=== PATIENT | male | born 1960 | race American Indian/Alaskan Native ===

== ENCOUNTER 2018-04-29 15:51 | Observation (INO) | payer OTHER ==
[2018-04-29] MEDS ORDERED: Sodium Chloride 0.9% 1,000 ML IV STA ×2 (16:22→18:44)
[2018-04-29 16:25] VITALS: BMI 27.7
--- NOTE | 2018-04-29 17:07 | ED PDOC ---
Arrival/HPI - General Chief Complaint: Weakness/Neurological Deficit Time Seen by Provider: 04/29/18 16:11 Historian: Patient - History of Present Illness Narrative History of Present Illness (Text): 04/29/18 17:04 57yo male with pmhx of hypertension, Diabetes, Colon CA s/p colectomy 2014 who present with complaint of generalized muscle cramping. Notes 3episodes of vomiting this morning after eating out and then the cramping started. also reports multiple episodes of diarrhea. Notes he was able to keep down a meal without vomiting this afternoon, but still having diarrhea. Denies focal chest pain, abdominal pain, fever, chills, hematemesis, hematochezia, melena, sick contact, travel, any other complaint. Past Medical History - Provider Review Nursing Documentation Reviewed: Yes - Tetanus Immunization Tetanus Immunization: Unknown - Cardiac Hx Hypertension: Yes - Endocrine/Metabolic Hx Diabetes Mellitus Type 2: Yes - Hematological/Oncological Hx Cancer: Yes (colon) - Musculoskeletal/Rheumatological Hx Falls: No - Gastrointestinal Other/Comment: S/P Colon resection 04/28/13 for removal of lesion - Psychiatric Hx Depression: No Hx Emotional Abuse: No Hx Physical Abuse: No Hx Substance Use: No - Anesthesia Hx Anesthesia: No Hx Anesthesia Reactions: No Hx Malignant Hyperthermia: No - Suicidal Assessment Feels Threatened In Home Enviroment: No Family/Social History - Physician Review Nursing Documentation Reviewed: Yes Family/Social History: Unknown Family HX Smoking Status: Never Smoked Hx Alcohol Use: No Hx Substance Use: No Allergies/Home Meds Allergies/Adverse Reactions: Allergies No Known Allergies Allergy (Verified 12/01/15 16:43) Home Medications: Home Meds Medication Instructions Recorded Confirmed RX: Magnesium Oxide [Magnesium] 400 mg PO BID 12/01/15 12/01/15 RX: Potassium Chloride [K-Dur 20 20 meq PO BID 12/01/15 12/01/15 mEq ER Tab] RX: amLODIPine [Norvasc] 10 mg PO DAILY 12/01/15 12/01/15 RX: metFORMIN [glucOPHAGE] 500 mg PO BID 12/01/15 12/01/15 Valsartan/Hydrochlorothiazide 1 tab PO DAILY 12/01/15 12/01/15 [Valsartan-Hctz 160-12.5 mg Tab] Review of Systems - Physician Review All systems were reviewed & negative as marked: Yes - Review of Systems Constitutional: Normal Eyes: Normal ENT: Normal Respiratory: Normal Cardiovascular: Normal Gastrointestinal: Normal Genitourinary Male: Normal Musculoskeletal: Other (Muscle cramps) Skin: Normal Neurological: Normal Endocrine: Normal Hemo/Lymphatic: Normal Psychiatric: Normal Physical Exam Vital Signs Reviewed: Yes Vital Signs Temp Pulse Resp BP Pulse Ox 04/29/18 16:59 98.4 F 04/29/18 16:52 98.4 F 101 H 18 106/61 99 Temperature: Afebrile Blood Pressure: Normal Pulse: Tachycardic Respiratory Rate: Normal Appearance: Positive for: Well-Appearing, Non-Toxic, Comfortable Pain Distress: None Mental Status: Positive for: Alert and Oriented X 3 - Systems Exam Head: Present: Atraumatic, Normocephalic Pupils: Present: PERRL Extroacular Muscles: Present: EOMI Conjunctiva: Present: Normal Mouth: Present: Moist Mucous Membranes Neck: Present: Normal Range of Motion Respiratory/Chest: Present: Clear to Auscultation, Good Air Exchange. No: Respiratory Distress, Accessory Muscle Use Cardiovascular: Present: Regular Rate and Rhythm, Normal S1, S2. No: Murmurs Abdomen: No: Tenderness, Distention, Peritoneal Signs Back: Present: Normal Inspection Upper Extremity: Present: Normal Inspection. No: Cyanosis, Edema Lower Extremity: Present: Normal Inspection. No: Edema Neurological: Present: GCS=15, CN II-XII Intact, Speech Normal Skin: Present: Warm, Dry, Normal Color. No: Rashes Psychiatric: Present: Alert, Oriented x 3, Normal Insight, Normal Concentration Medical Decision Making ED Course and Treatment: 04/29/18 19:02 57yo male who present with complaint of generalized body cramps since today. Labs EKG Chest xray UA 1L NS Reassess 04/29/18 21:46 EKG Sinus tachy @ 104. Chest xray : NAD Labs was reviewed and elevated Cr/BN was noted which is higher than his previous values. Pt likely having YANET secondary to dehydration. 2nd liter of NS was ordered and pt was admitted for obs. Case was DW Dr. maier and he accepted pt for admission. - Medication Orders Current Medication Orders: Sodium Chloride (Sodium Chloride 0.9%) 1,000 mls @ 999 mls/hr IV .Q1H1M STA Stop: 04/29/18 17:22 Disposition/Present on Arrival - Present on Arrival Any Indicators Present on Arrival: No History of DVT/PE: No History of Uncontrolled Diabetes: No Urinary Catheter: No History of Decub. Ulcer: No History Surgical Site Infection Following: None - Disposition Have Diagnosis and Disposition been Completed?: Yes Diagnosis: Acute renal injury, Dehydration Disposition: HOSPITALIZED Disposition Time: 19:30 Patient Plan: Admission Patient Problems: Current Active Problems Problem Status Onset Acute renal injury Acute Dehydration Acute Condition: FAIR
[2018-04-29 18:31] LABS: ALB/GLOB RATIO 1.5 (1.1-1.8); ALBUMIN 4.9 g/dL (3.0-4.8); ALT/SGPT 39 U/L (7-56); AST/SGOT 39 U/L (17-59); BLOOD UREA NITROGEN 28 mg/dL (7-21); CALCIUM 10.4 mg/dL (8.4-10.5); GFR NON-AFRICAN AMERICAN 37
[2018-04-29 18:37] LABS: TROPONIN I < 0.01 ng/mL
[2018-04-29 18:42] LABS: EOS % 0.1 % (1.5-5.0); GRAN # 8.22 (1.4-6.5); HEMOGLOBIN 15.3 g/dL (14.0-18.0); LYMPH % 10.1 % (22.0-35.0); MEAN CELL VOLUME 82.4 fl (80.0-105.0); MEAN PLATELET VOLUME 9.8 fl (7.0-11.0); MONO # 0.8 (0.1-0.6); MONO % 7.8 % (1.0-6.0); RBC 5.46 10^6/uL (3.5-6.1); RED CELL DISTRIBUTION WIDTH 14.1 % (11.5-14.5)
[2018-04-29 18:46] LABS: INR 1.16; PARTIAL THROMBOPLASTIN TIME 27.4 Seconds (25.1-36.5); PROTHROMBIN TIME 13.3 SECONDS (9.4-12.5)
[2018-04-29 18:50] LABS: PH,URINE 5.5 (4.7-8.0); URINE APPEARANCE CLEAR (CLEAR); URINE BILIRUBIN SMALL (NEGATIVE); URINE BLOOD NEGATIVE (NEGATIVE); URINE COLOR DARK YELLOW (YELLOW); URINE GLUCOSE (UA) NEGATIVE (NEGATIVE); URINE LEUKOCYTE ESTERASE NEGATIVE Leu/uL (NEGATIVE); URINE PROTEIN TRACE mg/dL (<30 mg/dL); URINE UROBILINOGEN 0.2 E.U./dL (<1 E.U./dL)
[2018-04-29 19:03] LABS: URINE BACTERIA TRACE (NEG); URINE RBC NEGATIVE /hpf (0-2); URINE WBC 0 - 2 /hpf (0-6)
[2018-04-29] MEDS: Sodium Chloride 0.9% 1,000 ML IV SCH (20:45)
[2018-04-29] MEDS: Insulin Reg-LOW-Coverage SC SCH (23:03)
[2018-04-30 02:09] VITALS: RESP 20
--- NOTE | 2018-04-30 05:22 | CP.PCM.HP ---
<Liliana Sanchez - Last Filed: 04/30/18 10:55> History of Present Illness - History of Present Illness History of Present Illness: CC: I was cramping from head to toe HPI: 57 yo male PMHx colon ca s/p 3 colon resections (1994, 2004, 2014), HTN, and DM2 presents for multiple episodes of vomiting, weakness, and muscle aches throughout his body Patient reports 2 days ago he went to [employer] at night and ate fries and a drink and during the night he awoke to cramping abdominal pain and had multiple episodes of nonbloody nonbilious emesis. Patient tried to have some orange juice and tangerine however he felt weak and had to lie down because of the cramping muscle aches throughout his body. At baseline, since his colon resections, patient has had chronic diarrhea [around 4-5 episodes/day]. This has been unchanged. Patient denied any fever, chills, abdominal pain. He did admit to some hot flashes when he first started to have vomiting. Patient denied any sick contacts/recent travel. This AM patient reported his symptoms had remarkably improved and he no longer complained of cramping pains throughout his body. Patient's nausea and vomiting had resolved. He had one loose BM this AM which is at his baseline. ROS on admission: admits- nausea, vomiting, diarrhea [baseline], muscle aches denies- fever, chills, headache, dizziness, chest pain, palpitations, SOB, cough, abd pain, constipation, swelling in legs b/l. PMHx: colon ca s/p 3 colon resections (1994, 2004, 2014), HTN, and DM2 PSurgHx: 3 colon resections (1994, 2004, 2014) at [facility] Meds: pls see chart ALL: NKDA SocHx: denies EtOH, tobacco use, drug use. Lives at home with his . 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 FamHx: mother, maternal grandmother, mother's siblings, and patient's son (at 32yo was dx) all have colon ca. No hx of heart disease or CVA in family. PMD: Dr. Banegas GI: Dr. Santoyo Cardio: Dr. Echavarria Oncology: Dr. Omalley Present on Admission - Present on Admission Any Indicators Present on Admission: No Review of Systems - Review of Systems All systems: reviewed and no additional remarkable complaints except Review of Systems: as per HPI Past Patient History - Tetanus Immunizations Tetanus Immunization: Unknown - Past Social History Smoking Status: Never Smoked - CARDIAC Hx Hypertension: Yes - ENDOCRINE/METABOLIC Hx Diabetes Mellitus Type 2: Yes - HEMATOLOGICAL/ONCOLOGICAL Hx Cancer: Yes (colon) - MUSCULOSKELETAL/RHEUMATOLOGICAL Hx Falls: No - GASTROINTESTINAL Other/Comment: S/P Colon resection 04/28/13 for removal of lesion - PSYCHIATRIC Hx Depression: No Hx Emotional Abuse: No Hx Physical Abuse: No Hx Substance Use: No - ANESTHESIA Hx Anesthesia: No Hx Anesthesia Reactions: No Hx Malignant Hyperthermia: No Meds Allergies/Adverse Reactions: Allergies Allergy/AdvReac Type Severity Reaction Status Date / Time No Known Allergies Allergy Verified 12/01/15 16:43 Physical Exam - Constitutional Appears: Non-toxic, No Acute Distress - Head Exam Head Exam: ATRAUMATIC, NORMAL INSPECTION, NORMOCEPHALIC - Eye Exam Eye Exam: EOMI, Normal appearance, PERRL. absent: Conjunctival injection, Scleral icterus Pupil Exam: NORMAL ACCOMODATION - ENT Exam ENT Exam: Mucous Membranes Moist - Neck Exam Neck exam: Positive for: Full Rom, Normal Inspection. Negative for: Lymphadenopathy - Respiratory Exam Respiratory Exam: Clear to Auscultation Bilateral, NORMAL BREATHING PATTERN. absent: Accessory Muscle Use, Rales, Rhonchi, Wheezes, Respiratory Distress - Cardiovascular Exam Cardiovascular Exam: REGULAR RHYTHM, RRR, +S1, +S2. absent: Systolic Murmur - GI/Abdominal Exam GI & Abdominal Exam: Normal Bowel Sounds, Soft. absent: Distended, Firm, Guarding, Hyperactive Bowel Sounds, Hypoactive Bowel Sounds, Mass, Rebound, Rigid, Tenderness Additional comments: surgical scar noted +BS - Rectal Exam Rectal Exam: Deferred - Extremities Exam Extremities exam: Positive for: normal capillary refill, normal inspection, pedal pulses present. Negative for: pedal edema - Back Exam Back exam: NORMAL INSPECTION. absent: rash noted - Neurological Exam Neurological exam: Alert, CN II-XII Intact, Oriented x3 - Psychiatric Exam Psychiatric exam: Normal Affect, Normal Mood - Skin Skin Exam: Dry, Intact, Normal Color, Warm Results - Vital Signs Recent Vital Signs: Last Vital Signs Temp 98.4 F 04/29/18 16:59 Pulse 88 04/30/18 00:08 Resp 20 04/30/18 00:57 BP 110/76 04/30/18 00:08 Pulse Ox 100 04/30/18 00:08 - Labs Result Diagrams: 04/30/18 07:15 04/30/18 07:15 Labs: Laboratory Results - last 24 hr 04/29/18 04/29/18 04/29/18 18:00 18:00 18:00 WBC 10.0 RBC 5.46 Hgb 15.3 Hct 45.0 MCV 82.4 MCH 28.0 MCHC 34.0 RDW 14.1 Plt Count 181 MPV 9.8 Gran % 82.0 H Lymph % (Auto) 10.1 L [place] % (Auto) 7.8 H Eos % (Auto) 0.1 L Baso % (Auto) 0.0 Gran # 8.22 H Lymph # (Auto) 1.0 L [place] # (Auto) 0.8 H Eos # (Auto) 0.0 Baso # (Auto) 0.00 PT 13.3 H INR 1.16 APTT 27.4 Sodium 136 Potassium 4.3 Chloride 93 L Carbon Dioxide 25 Anion Gap 22 H BUN 28 H Creatinine 1.9 H Est GFR ( Amer) 44 Est GFR (Non-Af Amer) 37 POC Glucose (mg/dL) Random Glucose 185 H Calcium 10.4 Magnesium 1.3 L Total Bilirubin 1.5 H AST 39 ALT 39 Alkaline Phosphatase 45 Lactate Dehydrogenase 568 Total Creatine Kinase 488 H CK-MB (CK-2) 4.0 H CK-MB (CK-2) % Cancelled Troponin I < 0.01 Total Protein 8.2 Albumin 4.9 H Globulin 3.3 Albumin/Globulin Ratio 1.5 Urine Color Urine Appearance Urine pH Ur Specific [place] Urine Protein Urine Glucose (UA) Urine Ketones Urine Blood Urine Nitrate Urine Bilirubin Urine Urobilinogen Ur Leukocyte Esterase Urine RBC Urine WBC Ur Epithelial Cells Urine Bacteria Hyaline Casts 04/29/18 04/29/18 18:44 22:58 WBC RBC Hgb Hct MCV MCH MCHC RDW Plt Count MPV Gran % Lymph % (Auto) [place] % (Auto) Eos % (Auto) Baso % (Auto) Gran # Lymph # (Auto) [place] # (Auto) Eos # (Auto) Baso # (Auto) PT INR APTT Sodium Potassium Chloride Carbon Dioxide Anion Gap BUN Creatinine Est GFR ( Amer) Est GFR (Non-Af Amer) POC Glucose (mg/dL) 155 H Random Glucose Calcium Magnesium Total Bilirubin AST ALT Alkaline Phosphatase Lactate Dehydrogenase Total Creatine Kinase CK-MB (CK-2) CK-MB (CK-2) % Troponin I Total Protein Albumin Globulin Albumin/Globulin Ratio Urine Color Dark yellow Urine Appearance Clear Urine pH 5.5 Ur Specific [place] >= 1.030 Urine Protein Trace H Urine Glucose (UA) Negative Urine Ketones Trace H Urine Blood Negative Urine Nitrate Negative Urine Bilirubin Small H Urine Urobilinogen 0.2 Ur Leukocyte Esterase Negative Urine RBC Negative Urine WBC 0 - 2 Ur Epithelial Cells 3 - 4 Urine Bacteria Trace Hyaline Casts 3-5 Assessment & Plan - Assessment and Plan (Free Text) Assessment: -Gastroenteritis likely viral -Muscle cramps -Elevated CK -Normocytic anemia -Hypomagnesemia -Elevated TBili -DM2 -HTN -Colon ca s/p 3 resections Plan: Patient's symptoms resolved this AM and he tolerated breakfast. He was started on maintenance fluids for elevated CK and is making good urine. Patient's anemia likely dilutional. Muscle cramps likely due to electrolyte abnl; Mg has been repleted. Elevated TBili noted with unremarkable DBili and no abdominal pain; can be monitored as outpatient. Home metformin on hold and patient was placed on accuchecks and RISS low while admitted. Patient can restart metformin upon discharge. Home HTN medications restarted with strict holding parameters; patient has been normotensive since admission. In light of patient's improved clinical picture, will monitor if patient is able to tolerate PO diet for lunch and likely discharge. Patient agreeable to plan. Discussed with Dr. Callum Sanchez Pgy3 <Manish Nolen S - Last Filed: 04/30/18 20:32> Results - Vital Signs Recent Vital Signs: Last Vital Signs Temp 98.5 F 04/30/18 14:00 Pulse 82 04/30/18 14:00 Resp 20 04/30/18 14:00 BP 107/64 04/30/18 14:00 Pulse Ox 94 L 04/30/18 14:00 - Labs Result Diagrams: 04/30/18 07:15 04/30/18 07:15 Labs: Laboratory Results - last 24 hr 04/29/18 04/30/18 04/30/18 22:58 07:13 07:15 WBC 6.9 D RBC 5.01 Hgb 13.8 L Hct 41.4 L MCV 82.6 MCH 27.5 MCHC 33.3 RDW 14.3 Plt Count 171 MPV 9.9 Sodium Potassium Chloride Carbon Dioxide Anion Gap BUN Creatinine Est GFR ( Amer) Est GFR (Non-Af Amer) POC Glucose (mg/dL) 155 H 146 H Random Glucose Calcium Phosphorus Magnesium Total Bilirubin Direct Bilirubin AST ALT Alkaline Phosphatase Total Creatine Kinase CK-MB (CK-2) CK-MB (CK-2) % Total Protein Albumin Globulin Albumin/Globulin Ratio Influenza Typ A,B (EIA) 04/30/18 04/30/18 04/30/18 07:15 10:56 11:31 WBC RBC Hgb Hct MCV MCH MCHC RDW Plt Count MPV Sodium 138 Potassium 3.6 Chloride 99 Carbon Dioxide 29 Anion Gap 14 BUN 29 H Creatinine 1.5 Est GFR ( Amer) 58 Est GFR (Non-Af Amer) 48 POC Glucose (mg/dL) 192 H Random Glucose 155 H Calcium 8.9 Phosphorus 5.1 H Magnesium 1.5 L Total Bilirubin 1.4 H Direct Bilirubin 0.2 AST 41 ALT 37 Alkaline Phosphatase 39 Total Creatine Kinase 986 H CK-MB (CK-2) 3.6 CK-MB (CK-2) % Cancelled Total Protein 7.4 Albumin 4.2 Globulin 3.2 Albumin/Globulin Ratio 1.3 Influenza Typ A,B (EIA) Negative for flu a/b Assessment & Plan - Assessment and Plan (Free Text) Plan: Pt seen and examined. I reviewed the note of the electromedical equipment technician and I agree with the note including the assessment and plan. I reviewed the medications and last labs. Pt with YANET and had diarrhea. Pt was not able to eat and was have cramps prior to coming in to the hospital. He had colectomy and has chronic diarrhea. Mg is low and will be replaced. HTN is controlled and will watch for hypotension. No abd pain. Hold metformin.
[2018-04-30] MEDS: Sodium Chloride 0.9% 1,000 ML IV SCH (06:59)
[2018-04-30] MEDS ORDERED: Sodium Chloride 0.9% 1,000 ML IV SCH (07:30)
[2018-04-30 07:43] LABS: HEMOGLOBIN 13.8 g/dL (14.0-18.0); MEAN CELL VOLUME 82.6 fl (80.0-105.0); MEAN CORPUSCULAR HEMOGLOBIN 27.5 pg (25.0-35.0); MEAN CORPUSCULAR HGB CONC 33.3 g/dl (31.0-37.0); MEAN PLATELET VOLUME 9.9 fl (7.0-11.0); RBC 5.01 10^6/uL (3.5-6.1); RED CELL DISTRIBUTION WIDTH 14.3 % (11.5-14.5); WHITE BLOOD COUNT 6.9 10^3/uL (4.5-11.0)
[2018-04-30 07:49] VITALS: TEMP 98.5
[2018-04-30 07:55] LABS: ALB/GLOB RATIO 1.3 (1.1-1.8); ALBUMIN 4.2 g/dL (3.0-4.8); CALCIUM 8.9 mg/dL (8.4-10.5)
[2018-04-30 08:09] LABS: BILIRUBIN,DIRECT 0.2 mg/dL (0.0-0.4)
[2018-04-30] MEDS ORDERED: Magnesium Sulfate 2 GM in Sodium Chloride 0.9% 100 ML IV ONE (08:11)
[2018-04-30 08:29] LABS: CK-MB 3.6 ng/mL (0.0-3.6)
[2018-04-30] MEDS ORDERED: Magnesium Sulfate 2 gm/50 ml 2 GM/50 ML BAG IV ONE (08:30)
--- NOTE | 2018-04-30 08:50 | RAD ---
Date of service: 04/29/2018 HISTORY: admission COMPARISON: 05/10/2013 FINDINGS: LUNGS: No active pulmonary disease. PLEURA: No significant pleural effusion identified, no pneumothorax apparent. CARDIOVASCULAR: No aortic atherosclerotic calcification present. Normal cardiac size. No pulmonary vascular congestion. OSSEOUS STRUCTURES: No significant abnormalities. VISUALIZED UPPER ABDOMEN: Normal. OTHER FINDINGS: None. IMPRESSION: No active disease.
[2018-04-30] MEDS: Insulin Reg-LOW-Coverage SC SCH ×2 (11:31→11:35)
--- NOTE | 2018-04-30 13:26 | CP.PCM.DIS ---
<Liliana Sanchez - Last Filed: 04/30/18 13:19> Provider - Provider Date of Admission: 04/29/18 19:07 Attending physician: Manish Nolen MD Primary care physician: Pat Banegas MD Time Spent in preparation of Discharge (in minutes): 45 Hospital Course - Lab Results Lab Results: Most Recent Lab Values WBC 6.9 10^3/uL (4.5-11.0) D 04/30/18 07:15 RBC 5.01 10^6/uL (3.5-6.1) 04/30/18 07:15 Hgb 13.8 g/dL (14.0-18.0) L 04/30/18 07:15 Hct 41.4 % (42.0-52.0) L 04/30/18 07:15 MCV 82.6 fl (80.0-105.0) 04/30/18 07:15 MCH 27.5 pg (25.0-35.0) 04/30/18 07:15 MCHC 33.3 g/dl (31.0-37.0) 04/30/18 07:15 RDW 14.3 % (11.5-14.5) 04/30/18 07:15 Plt Count 171 10^3/uL (120.0-450.0) 04/30/18 07:15 MPV 9.9 fl (7.0-11.0) 04/30/18 07:15 Gran % 82.0 % (50.0-68.0) H 04/29/18 18:00 Lymph % (Auto) 10.1 % (22.0-35.0) L 04/29/18 18:00 [place] % (Auto) 7.8 % (1.0-6.0) H 04/29/18 18:00 Eos % (Auto) 0.1 % (1.5-5.0) L 04/29/18 18:00 Baso % (Auto) 0.0 % (0.0-3.0) 04/29/18 18:00 Gran # 8.22 (1.4-6.5) H 04/29/18 18:00 Lymph # (Auto) 1.0 (1.2-3.4) L 04/29/18 18:00 [place] # (Auto) 0.8 (0.1-0.6) H 04/29/18 18:00 Eos # (Auto) 0.0 (0.0-0.7) 04/29/18 18:00 Baso # (Auto) 0.00 K/mm3 (0.0-2.0) 04/29/18 18:00 PT 13.3 SECONDS (9.4-12.5) H 04/29/18 18:00 INR 1.16 04/29/18 18:00 APTT 27.4 Seconds (25.1-36.5) 04/29/18 18:00 Sodium 138 mmol/L (132-148) 04/30/18 07:15 Potassium 3.6 mmol/L (3.6-5.0) 04/30/18 07:15 Chloride 99 mmol/L (98-107) 04/30/18 07:15 Carbon Dioxide 29 mmol/L (21-33) 04/30/18 07:15 Anion Gap 14 (10-20) 04/30/18 07:15 BUN 29 mg/dL (7-21) H 04/30/18 07:15 Creatinine 1.5 mg/dl (0.8-1.5) 04/30/18 07:15 Est GFR ( Amer) 58 04/30/18 07:15 Est GFR (Non-Af Amer) 48 04/30/18 07:15 POC Glucose (mg/dL) 192 mg/dL (65-110) H 04/30/18 10:56 Random Glucose 155 mg/dL (70-110) H 04/30/18 07:15 Calcium 8.9 mg/dL (8.4-10.5) 04/30/18 07:15 Phosphorus 5.1 mg/dL (2.5-4.5) H 04/30/18 07:15 Magnesium 1.5 mg/dL (1.7-2.2) L 04/30/18 07:15 Total Bilirubin 1.4 mg/dL (0.2-1.3) H 04/30/18 07:15 Direct Bilirubin 0.2 mg/dL (0.0-0.4) 04/30/18 07:15 AST 41 U/L (17-59) 04/30/18 07:15 ALT 37 U/L (7-56) 04/30/18 07:15 Alkaline Phosphatase 39 U/L (38-126) 04/30/18 07:15 Lactate Dehydrogenase 568 U/L (333-699) 04/29/18 18:00 Total Creatine Kinase 986 U/L (35-230) H 04/30/18 07:15 CK-MB (CK-2) 3.6 ng/mL (0.0-3.6) 04/30/18 07:15 CK-MB (CK-2) % Cancelled 04/29/18 18:00 Troponin I < 0.01 ng/mL 04/29/18 18:00 Total Protein 7.4 g/dL (5.8-8.3) 04/30/18 07:15 Albumin 4.2 g/dL (3.0-4.8) 04/30/18 07:15 Globulin 3.2 gm/dL 04/30/18 07:15 Albumin/Globulin Ratio 1.3 (1.1-1.8) 04/30/18 07:15 Urine Color Dark yellow (YELLOW) 04/29/18 18:44 Urine Appearance Clear (CLEAR) 04/29/18 18:44 Urine pH 5.5 (4.7-8.0) 04/29/18 18:44 Ur Specific [place] >= 1.030 (1.005-1.035) 04/29/18 18:44 Urine Protein Trace mg/dL (<30 mg/dL) H 04/29/18 18:44 Urine Glucose (UA) Negative mg/dL (NEGATIVE) 04/29/18 18:44 Urine Ketones Trace mg/dL (NEGATIVE) H 04/29/18 18:44 Urine Blood Negative (NEGATIVE) 04/29/18 18:44 Urine Nitrate Negative (NEGATIVE) 04/29/18 18:44 Urine Bilirubin Small (NEGATIVE) H 04/29/18 18:44 Urine Urobilinogen 0.2 E.U./dL (<1 E.U./dL) 04/29/18 18:44 Ur Leukocyte Esterase Negative Mehnaz/uL (NEGATIVE) 04/29/18 18:44 Urine RBC Negative /hpf (0-2) 04/29/18 18:44 Urine WBC 0 - 2 /hpf (0-6) 04/29/18 18:44 Ur Epithelial Cells 3 - 4 /hpf (0-5) 04/29/18 18:44 Urine Bacteria Trace (NEG) 04/29/18 18:44 Hyaline Casts 3-5 /hpf 04/29/18 18:44 Influenza Typ A,B (EIA) Negative for flu a/b (NEGATIVE) 04/30/18 11:31 - Hospital Course Hospital Course: Upon Admission 57 yo male PMHx colon ca s/p 3 colon resections (1994, 2004, 2014), HTN, and DM2 presents for multiple episodes of vomiting, weakness, and muscle aches throughout his body Patient reports 2 days ago he went to [place] at night and ate fries and a drink and during the night he awoke to cramping abdominal pain and had multiple episodes of nonbloody nonbilious emesis. Patient tried to have some orange juice and tangerine however he felt weak and had to lie down because of the cramping muscle aches throughout his body. At baseline, since his colon resections, patient has had chronic diarrhea [around 4-5 episodes/day]. This has been unchanged. Patient denied any fever, chills, abdominal pain. He did admit to some hot flashes when he first started to have vomiting. Patient denied any sick contacts/recent travel. Hospital Course Patient was admitted med/surg and started on IV hydration. Patient's symptoms resolved this AM and he tolerated regular breakfast and lunch. He denied any muscle cramps and the electrolyte abnormalities noted on bloodwork were repleted. Patient was normotensive throughout admission and he clinically improved. On day of discharge patient was medically optimized to be discharged home. Upon Discharge Patient was discharged home and given refills to his two home medications taken for HTN. -Amlodipine 10mg po 1 tab qdaily -Valsartan-HCTZ 160-12.5mg po 1 tab qdaily Patient advised to stay hydrated and to f/u with his PMD Dr. Banegas within 5-7 days. If symptoms returned patient advised to visit the nearest ED. Patient voiced understanding and agreement with the plan. Please note this is a discharge summary. For full hospital course please refer to EMR. Discharge Exam - Head Exam Head Exam: ATRAUMATIC, NORMAL INSPECTION, NORMOCEPHALIC - Eye Exam Eye Exam: EOMI, Normal appearance, PERRL. absent: Conjunctival injection, Scleral icterus Pupil Exam: NORMAL ACCOMODATION - ENT Exam ENT Exam: Mucous Membranes Moist - Neck Exam Neck exam: Full Rom, Normal Inspection - Respiratory Exam Respiratory Exam: Clear to PA & Lateral, NORMAL BREATHING PATTERN. absent: Accessory Muscle Use, Rales, Rhonchi, Wheezes, Respiratory Distress - Cardiovascular Exam Cardiovascular Exam: REGULAR RHYTHM, RRR, +S1, +S2 - GI/Abdominal Exam GI & Abdominal Exam: Normal Bowel Sounds, Soft. absent: Firm, Guarding, Rigid, Tenderness - Rectal Exam Rectal Exam: Deferred - Extremities Exam Extremities exam: normal capillary refill, normal inspection, pedal pulses present - Back Exam Back exam: NORMAL INSPECTION. absent: rash noted - Neurological Exam Neurological exam: Alert, CN II-XII Intact, Normal Gait, Oriented x3 - Psychiatric Exam Psychiatric exam: Normal Affect, Normal Mood - Skin Skin Exam: Dry, Intact, Normal Color, Warm Discharge Plan - Discharge Medications Prescriptions: RX: amLODIPine [Norvasc] 10 mg PO DAILY #30 tab RX: Valsartan/Hydrochlorothiazide [Valsartan-Hctz 160-12.5 mg Tab] 1 tab PO DAILY #30 tablet - Follow Up Plan Condition: FAIR Disposition: HOME/ ROUTINE Instructions: Smoking: Not Just Harmful to Your Lungs and Heart, Dangers of Secondhand Smoke, Preventing Falls, Dehydration (DC) Additional Instructions: You are being discharged from [facility]. You have been given refills for your two home medications that you take for high blood pressure. -Amlodipine 10mg by mouth daily -Valsartan-HCTZ 160-12.5mg by mouth daily Please ensure that you stay hydrated. Please follow up with your primary care doctor Dr. Banegas within the next 5-7 days. If symptoms return please visit your nearest Emergency Room Department. Referrals: Pat Banegas MD [Primary Care Provider] - <Manish Nolen - Last Filed: 04/30/18 20:15> Provider - Provider Date of Admission: 04/29/18 19:07 Attending physician: Manish Nolen MD Primary care physician: Pat Banegas MD Hospital Course - Lab Results Lab Results: Most Recent Lab Values WBC 6.9 10^3/uL (4.5-11.0) D 04/30/18 07:15 RBC 5.01 10^6/uL (3.5-6.1) 04/30/18 07:15 Hgb 13.8 g/dL (14.0-18.0) L 04/30/18 07:15 Hct 41.4 % (42.0-52.0) L 04/30/18 07:15 MCV 82.6 fl (80.0-105.0) 04/30/18 07:15 MCH 27.5 pg (25.0-35.0) 04/30/18 07:15 MCHC 33.3 g/dl (31.0-37.0) 04/30/18 07:15 RDW 14.3 % (11.5-14.5) 04/30/18 07:15 Plt Count 171 10^3/uL (120.0-450.0) 04/30/18 07:15 MPV 9.9 fl (7.0-11.0) 04/30/18 07:15 Gran % 82.0 % (50.0-68.0) H 04/29/18 18:00 Lymph % (Auto) 10.1 % (22.0-35.0) L 04/29/18 18:00 [place] % (Auto) 7.8 % (1.0-6.0) H 04/29/18 18:00 Eos % (Auto) 0.1 % (1.5-5.0) L 04/29/18 18:00 Baso % (Auto) 0.0 % (0.0-3.0) 04/29/18 18:00 Gran # 8.22 (1.4-6.5) H 04/29/18 18:00 Lymph # (Auto) 1.0 (1.2-3.4) L 04/29/18 18:00 [place] # (Auto) 0.8 (0.1-0.6) H 04/29/18 18:00 Eos # (Auto) 0.0 (0.0-0.7) 04/29/18 18:00 Baso # (Auto) 0.00 K/mm3 (0.0-2.0) 04/29/18 18:00 PT 13.3 SECONDS (9.4-12.5) H 04/29/18 18:00 INR 1.16 04/29/18 18:00 APTT 27.4 Seconds (25.1-36.5) 04/29/18 18:00 Sodium 138 mmol/L (132-148) 04/30/18 07:15 Potassium 3.6 mmol/L (3.6-5.0) 04/30/18 07:15 Chloride 99 mmol/L (98-107) 04/30/18 07:15 Carbon Dioxide 29 mmol/L (21-33) 04/30/18 07:15 Anion Gap 14 (10-20) 04/30/18 07:15 BUN 29 mg/dL (7-21) H 04/30/18 07:15 Creatinine 1.5 mg/dl (0.8-1.5) 04/30/18 07:15 Est GFR ( Amer) 58 04/30/18 07:15 Est GFR (Non-Af Amer) 48 04/30/18 07:15 POC Glucose (mg/dL) 192 mg/dL (65-110) H 04/30/18 10:56 Random Glucose 155 mg/dL (70-110) H 04/30/18 07:15 Calcium 8.9 mg/dL (8.4-10.5) 04/30/18 07:15 Phosphorus 5.1 mg/dL (2.5-4.5) H 04/30/18 07:15 Magnesium 1.5 mg/dL (1.7-2.2) L 04/30/18 07:15 Total Bilirubin 1.4 mg/dL (0.2-1.3) H 04/30/18 07:15 Direct Bilirubin 0.2 mg/dL (0.0-0.4) 04/30/18 07:15 AST 41 U/L (17-59) 04/30/18 07:15 ALT 37 U/L (7-56) 04/30/18 07:15 Alkaline Phosphatase 39 U/L (38-126) 04/30/18 07:15 Lactate Dehydrogenase 568 U/L (333-699) 04/29/18 18:00 Total Creatine Kinase 986 U/L (35-230) H 04/30/18 07:15 CK-MB (CK-2) 3.6 ng/mL (0.0-3.6) 04/30/18 07:15 CK-MB (CK-2) % Cancelled 12/06/18 18:00 Troponin I < 0.01 ng/mL 04/29/18 18:00 Total Protein 7.4 g/dL (5.8-8.3) 04/30/18 07:15 Albumin 4.2 g/dL (3.0-4.8) 04/30/18 07:15 Globulin 3.2 gm/dL 04/30/18 07:15 Albumin/Globulin Ratio 1.3 (1.1-1.8) 04/30/18 07:15 Urine Color Dark yellow (YELLOW) 04/29/18 18:44 Urine Appearance Clear (CLEAR) 04/29/18 18:44 Urine pH 5.5 (4.7-8.0) 12 18:44 Ur Specific [place] >= 1.030 (1.005-1.035) 04/29/18 18:44 Urine Protein Trace mg/dL (<30 mg/dL) H 04/29/18 18:44 Urine Glucose (UA) Negative mg/dL (NEGATIVE) 04/29/18 18:44 Urine Ketones Trace mg/dL (NEGATIVE) H 04/29/18 18:44 Urine Blood Negative (NEGATIVE) 04/29/18 18:44 Urine Nitrate Negative (NEGATIVE) 04/29/18 18:44 Urine Bilirubin Small (NEGATIVE) H 04/29/18 18:44 Urine Urobilinogen 0.2 E.U./dL (<1 E.U./dL) 12 18:44 Ur Leukocyte Esterase Negative Mehnaz/uL (NEGATIVE) 04/29/18 18:44 Urine RBC Negative /hpf (0-2) 04/29/18 18:44 Urine WBC 0 - 2 /hpf (0-6) 12 18:44 Ur Epithelial Cells 3 - 4 /hpf (0-5) 04/29/18 18:44 Urine Bacteria Trace (NEG) 04/29/18 18:44 Hyaline Casts 3-5 /hpf 04/29/18 18:44 Influenza Typ A,B (EIA) Negative for flu a/b (NEGATIVE) 04/30/18 11:31 - Hospital Course Hospital Course: Pt seen and examined. I reviewed the note of the medical associate and I agree with the note including the assessment and plan. I reviewed the medications and last labs. Pt with YANET due to hypovolemia from diarrhea. He was having crampingand abd pain. He was given IVF and his symptoms improved He has a hx of colon resection. His repeate Cr is improved. He was able to tolerate PO with breakfast and lunch. He will be discharged home. He may a hx of HTN and it is controlled with Amlodipine that he will continue as outpt.
[2018-04-30 14:40] VITALS: BP 107/64; PULSE 82; O2SAT 94
--- NOTE | 2018-04-30 16:26 | CARD ---
APPROVED REPORT Date of service: 04/29/2018 EKG Measurement Heart [id number] <Conclusion> Sinus tachycardia Otherwise normal ECG
== END 2018-04-30 16:32 | disposition home or self-care (01) ==
LOC: ED 15:51 → ERH 19:07 → 5RSO 04-30 00:28
PROVIDERS: ADMIT Internal Medicine Nephrology; ATTEND Internal Medicine Nephrology
DX: A08.4 Viral intestinal infection, unspecified (principal); N17.9 Acute kidney failure, unspecified; E86.0 Dehydration; E86.1 Hypovolemia; E83.42 Hypomagnesemia; R25.2 Cramp and spasm; I10 Essential (primary) hypertension; E11.9 Type 2 diabetes mellitus without complications; D64.9 Anemia, unspecified; Z85.038 Personal history of other malignant neoplasm of large intestine; Z79.84 Long term (current) use of oral hypoglycemic drugs
CPT/HCPCS: 36415; 71045; 80053; 81001; 82248; 82550; 82553; 82948; 83615; 83735; 84100; 84484; 85025; 85027; 85610; 85730; 87804; 93005; 96374; 99285; G0378; J2060; J7030